=== PATIENT | male | born 1945 | race Caucasian/White ===

== ENCOUNTER 2020-11-30 21:10 | Emergency (ER) | payer MEDICARE ==
[2020-11-30 22:15] LABS: BASOPHIL 0.4 % (0-2); EOSINOPHIL 1.9 % (0-7); HCT 24.2 % (42.0-52.0); HGB 7.9 g/dl (13.2-18.0); LYMPHOCYTE 12.5 % (15-48); MCHC 32.6 g/dL (32.0-36.0); MONOCYTE 4.8 % (0-12); MPV 11.3 fL (6.0-9.5); NEUTROPHIL 79.9 % (41-80); NRBC 0.2; PLT 226 K/uL (150-400); RBC 2.72 M/uL (4.70-6.00); RDW 13.6 % (11.5-14.0); WBC 12.9 K/uL (4.0-10.5)
[2020-11-30 22:26] LABS: ALBUMIN 3.1 g/dL (3.4-5.0); BILIRUBIN - TOTAL 0.3 mg/dL (0.2-1.0); BUN/CREAT RATIO (CALC) 19.6 RATIO; CREATININE 2.65 mg/dL (0.67-1.17); GLOBULIN (CALCULATION) 2.9 g/dL; POTASSIUM 4.4 mmol/L (3.5-5.1)
[2020-12-01 01:19] LABS: BILIRUBIN NEGATIVE (NEGATIVE); BLOOD 3+ Ery/uL (NEGATIVE); CLARITY HAZY (CLEAR); COLOR YELLOW (YELLOW); GLUCOSE (U) NORMAL (NORMAL); LEUKOCYTES NEGATIVE Leu/uL (NEGATIVE); NITRITE NEGATIVE (NEGATIVE); PROTEIN 3+ mg/dL (NEGATIVE); SPECIFIC GRAVITY >=1.030 (1.001-1.030); UROBILINOGEN 0.2 mg/dL (0.2-1.0); pH 5.5 (5.0-9.0)
[2020-12-01 01:25] LABS: BACTERIA 2+; SQUAMOUS EPITHELIAL CELLS RARE; URINARY RBC TNTC
[2020-12-01 02:20] LABS: LACTIC ACID 2.7 mmol/L (0.4-1.9)
[2020-12-01 02:26] LABS: HCT 21.9 % (42.0-52.0)
[2020-12-01 02:27] LABS: HGB 7.1 g/dL (13.2-18.0)
[2020-12-01 02:28] LABS: INR 1.23 (0.9-1.2); PROTHROMBIN TIME 14.7 SECONDS (11.4-13.6); PTT 29.8 SECONDS (22.2-34.7)
[2020-12-01 05:29] LABS: HCT 21.4 % (42.0-52.0)
== END 2020-12-01 10:34 | disposition other institution (70) ==
LOC: FER 21:10
PROVIDERS: Emergency Medicine Emergency Medical Services
DX: S37.011A Minor contusion of right kidney, initial encounter (principal); K66.1 Hemoperitoneum; N17.9 Acute kidney failure, unspecified; J90 Pleural effusion, not elsewhere classified; E11.9 Type 2 diabetes mellitus without complications; I10 Essential (primary) hypertension; Z87.442 Personal history of urinary calculi; Z79.84 Long term (current) use of oral hypoglycemic drugs; Z79.899 Other long term (current) drug therapy; X58.XXXA Exposure to other specified factors, initial encounter; Z20.822 Contact with and (suspected) exposure to COVID-19
CPT/HCPCS: 36415; 80053; 81001; 83605; 85014; 85018; 85025; 85610; 85730; 86850; 86900; 86901; 86922; 87040; 87088; J0692; J1170; J2270; J2405; J7030; U0002

== ENCOUNTER 2021-09-24 23:29 | Emergency (ER) | payer MEDICARE ==
[2021-09-24 23:53] LABS: BASOPHIL 0.2 % (0-2); EOSINOPHIL 0.2 % (0-7); HCT 24.1 % (42.0-52.0); LYMPHOCYTE 2.4 % (15-48); MCH 31.1 pg (25.0-31.0); MCHC 33.2 g/dL (32.0-36.0); MCV 93.8 fL (78.0-100.0); MONOCYTE 2.8 % (0-12); MPV 11.4 fL (6.0-9.5); NRBC 0; RBC 2.57 M/uL (4.70-6.00); RDW 14.7 % (11.5-14.0); WBC 5.1 K/uL (4.0-10.5)
[2021-09-25] LABS: NEUTROPHIL 93.8 % (41-80)
[2021-09-25 00:05] LABS: ALBUMIN 2.5 g/dL (3.4-5.0); BILIRUBIN - TOTAL 0.7 mg/dL (0.2-1.0); BUN/CREAT RATIO (CALC) 15.9 RATIO; CREATININE 2.7 mg/dL (0.67-1.17); GLOBULIN (CALCULATION) 3.7 g/dL; TOTAL PROTEIN 6.2 g/dL (6.4-8.2)
[2021-09-25 00:15] LABS: LACTIC ACID 2.7 mmol/L (0.4-1.9)
[2021-09-25 00:17] LABS: PLT 80 K/uL (150-400)
[2021-09-25 00:36] LABS: INR 1.36 (0.9-1.2); PROTHROMBIN TIME 16.1 SECONDS (11.8-13.4); PTT 35.3 SECONDS (24.4-34.7)
[2021-09-25 00:37] LABS: INFLUENZA A NAA NEGATIVE (NEGATIVE)
[2021-09-25 00:38] LABS: CORONAVIRUS 2019 SARS-COV-2 POSITIVE (NEGATIVE)
[2021-09-25 01:43] LABS: BILIRUBIN NEGATIVE (NEGATIVE); BLOOD TRACE-INTACT Ery/uL (NEGATIVE); CLARITY CLEAR (CLEAR); COLOR YELLOW (YELLOW); GLUCOSE (U) NORMAL (NORMAL); LEUKOCYTES NEGATIVE Leu/uL (NEGATIVE); NITRITE NEGATIVE (NEGATIVE); PROTEIN 2+ mg/dL (NEGATIVE); SPECIFIC GRAVITY >=1.030 (1.001-1.030); UROBILINOGEN 0.2 mg/dL (0.2-1.0)
[2021-09-25 01:52] LABS: AMORPHOUS URATES CRYSTALS MODERATE; BACTERIA 2+
== END 2021-09-25 07:35 | disposition other institution (70) ==
LOC: FER 23:29
PROVIDERS: Internal Medicine
DX: A41.9 Sepsis, unspecified organism (principal); G93.41 Metabolic encephalopathy; U07.1 COVID-19; E11.22 Type 2 diabetes mellitus with diabetic chronic kidney disease; N18.6 End stage renal disease; D63.1 Anemia in chronic kidney disease; Z99.2 Dependence on renal dialysis; Z79.4 Long term (current) use of insulin
CPT/HCPCS: 36415; 70450; 71045; 71250; 80053; 81001; 83605; 83880; 84145; 84484; 85025; 85610; 85730; 87040; 93005; 94760; C9113; J1100; J2543; U0002